=== PATIENT | female | born 1945 | race Caucasian/White ===

== ENCOUNTER → 2017-02-15 08:17 | Day surgery (SDC) | payer MEDICARE, BC ==
--- NOTE | 2017-02-14 01:19 | HP ---
ADMITTING HISTORY AND PHYSICAL: DATE OF ADMISSION: 02/15/17 ADMITTING DIAGNOSES: 1. Bilateral hydronephrosis (left greater than right). 2. Renal insufficiency. 3. Metastatic gallbladder carcinoma. PLANNED PROCEDURE: Cystoscopy, left retrograde, left stent insertion, possible left ureteroscopy, and possible right stent insertion. SURGEON: Dr. Henderson. HISTORY OF PRESENT ILLNESS: Amrita Parker is a 71-year-old lady with metastatic gallbladder carcinoma diagnosed in 2015, who has been getting chemotherapy. She had a CAT scan done on January 16, which had revealed new onset of left hydronephrosis. This has persisted and there is also mild right hydronephrosis. Her creatinine has been progressively deteriorating, went from 1.7 to 1.9 to 2.1. She denies any flank pain, dysuria, or gross hematuria. There is no definite etiology for the hydronephrosis noted on the imaging studies and she is now being brought in for further evaluation and management. PAST MEDICAL HISTORY: Significant for: 1. Hypertension. 2. High cholesterol. 3. Remote history of kidney stones. PAST SURGICAL HISTORY: Significant for PowerPort placement; exploratory laparotomy in April 2016, resulting in diagnosis of advanced gallbladder carcinoma; right ureteroscopy; appendectomy. MEDICATIONS: On admission: 1. Vicodin 5/325 p.r.n. 2. Lisinopril/hydrochlorothiazide 10/12.5 one tablet daily. 3. Potassium chloride 20 mEq daily. 4. Atorvastatin 20 mg daily. 5. Lorazepam 0.5 mg p.r.n. ALLERGIES: CIPRO (hives). SOCIAL HISTORY: Smoking history: She is a nonsmoker. PHYSICAL EXAMINATION GENERAL: Reveals a pleasant elderly lady. VITAL SIGNS: Blood pressure is 136/74, pulse 66 per minute, oxygen saturation 99% on room air. CARDIOVASCULAR: Regular rate and rhythm. S1, S2. Lungs are clear bilaterally. ABDOMEN: Soft without flank tenderness. Left subclavian port is in place. IMPRESSION: I reviewed the imaging studies and had a detailed discussion with Ms. Parker regarding the left hydronephrosis and the mild right hydronephrosis. PLAN: For cystoscopy, left retrograde, and stent insertion, and possible left ureteroscopy and possible right stent insertion depending on intraoperative findings. CC: Dr. Chavarria; Sandrita Bermudez NP; Dr. Henderson * [id number]/[facility] #: [id number] MAR[place]
[~2017-02-15 08:17] MED LIST: Buffered Lidocaine 1% SYRIN* 3 ML/SYR SYRINGE INTRADERM ONE; CMCS Solifenacin(NF) 5 MG TAB PO ONE; DiMENhydriNATE IV* 50 MG/ML VIAL IV PUSH PRN; DiMENhydriNATE IV* 50 MG/ML VIAL ONE; Furosemide IV* 10 MG/ML 2 ML VIAL (20 MG) ONE; Iohexol 180 (CONTRAST) 10 ML SDV IV ONE; Midazolam* 1 MG/ML 2 ML VIAL (2 MG) ONE; Ondansetron INJ* 2 MG/ML VIAL ONE; Scopolamine 1.5 mg* PATCH ONE; Scopolamine 1.5 mg* PATCH TRANSDERM ONE; cefTRIAXone(*) 2 GM ADDV.VIAL IVPB ONE; fentaNYL* 50 MCG/ML 2 ML VIAL (100 MCG VIAL) IV PRN; fentaNYL* 50 MCG/ML 2 ML VIAL (100 MCG VIAL) ONE
--- NOTE | 2017-02-15 11:56 | RAD ---
INDICATION: Bilateral stent placement COMPARISONS: CT dated January 16, 2017 TECHNIQUE: Fluoroscopy was provided for a retrograde pyelogram and stent placement. Total fluoroscopy time is: 27 seconds FINDINGS: Spot images after contrast within the renal collecting systems bilaterally, which are dilated. Bilateral ureteral stents are noted. IMPRESSION: FLUOROSCOPY WAS PROVIDED FOR A RETROGRADE PYELOGRAM AND STENT PLACEMENT CPT II Codes: 6045F
[2017-02-15 16:13] VITALS: BP 127/59
--- NOTE | 2017-02-27 01:44 | OP ---
DATE OF OPERATION: 02/15/17 - SDS DATE OF : [birth year] - AGE: 71 years, female. SURGEON: Clark Henderson MD ANESTHESIOLOGIST: Dr. Elias. ANESTHESIA: Spinal. PRE-OP DIAGNOSES: 1. Moderate to severe left hydronephrosis. 2. Mild right hydronephrosis. POST-OP DIAGNOSES: 1. Moderate to severe left hydronephrosis. 2. Mild right hydronephrosis. OPERATIVE PROCEDURE: 1. Cystoscopy, left retrograde pyelogram, left urethral dilatation, left ureteroscopy and left stent insertion. 2. Right retrograde and right stent insertion. COMPLICATIONS: None. STENTS USED: 7-Montenegr[place] 28 cm silicone stent, left ureter and 8.5 Mont[place] 28 cm silicone stent to the right ureter. OPERATIVE FINDINGS: Severe bilateral hydronephrosis with obstruction at the level of the distal left ureter with no definite etiology noted (possible fibrosis, possible extrinsic compression), mild right hydronephrosis. INDICATION: Amrita Parker is a 71-year-old lady with metastatic gallbladder carcinoma, who was noted to have severe left hydronephrosis and worsening renal function. In addition, she has mild right hydronephrosis. DESCRIPTION OF PROCEDURE: After induction of spinal anesthesia, the patient was placed in dorsal lithotomy position. Sequential compression devices were in place and functioning. Initial cystoscopy revealed no evidence of any mucosal lesions noted in the bladder. The left orifice was identified and cannulated and open- ended catheter was advanced over the guidewire and the entire 3 to 4 cm of the distal ureter were fairly narrow making even insertion of the open-ended catheter difficult. This was carefully dilated to 8-Montenegrin and semi-rigid ureteroscope was introduced. The lumen of the ureter appeared compressed as if by fibrosis or external pressure, but I could not visualize it very well and I did not see any lesions within the lumen. Nonetheless, the ureteroscopy was not completely able to rule out a lesion involving the mucosa anywhere more proximally, and she will require repeat ureteroscopy once the ureter has been allowed to dilate. On retrograde pyelogram, the proximal ureter was quite tortuous and there was a fair amount of extravasation of contrast noted. A 7-Montenegrin stent was introduced and advanced under fluoroscopic monitoring with good proximal and distal positioning obtained. Again, because of the significant narrowing of the distal ureter, even advancing a 7-Montenegrin stent was somewhat technically difficult, but at the end, it looked like it was in appropriate position. Next, attention was direct to the right side. Right retrograde revealed mild hydronephrosis and 8.5 [place] 28 cm silicone stent was placed successfully on the right side under fluoroscopic monitoring. My plan is to bring her back in 4 to 6 weeks to further assess the left ureter and to further dilate it and to be able to place an 8.5 Montenegrin stent on the left side also to try and keep it open for a more sustained duration. CC: Michelet Chavarria MD; Sandrita Bermudez NP; Dr. Henderson * [id number]/[facility] #: [id number] [facility]
== END | disposition home or self-care (01) ==
LOC: OR 08:17
PROVIDERS: ATTEND Urology
DX: N13.1 Hydronephrosis with ureteral stricture, not elsewhere classified (principal); C23 Malignant neoplasm of gallbladder; I10 Essential (primary) hypertension; N28.9 Disorder of kidney and ureter, unspecified
CPT/HCPCS: 74420; A9270-GY; C1876; J0696; J1240; J1642; J1940; J2250; J2405; J3010

== ENCOUNTER 2017-05-25 16:57 | Inpatient (IN) | payer MEDICARE, BC ==
[2017-05-25] MEDS ORDERED: Acetaminophen SUPP* 650 MG SUPP PR ONE (17:38)
--- NOTE | 2017-05-25 17:57 | RAD ---
HISTORY: Fever, pneumonia COMPARISONS: March 06, 2017 VIEWS:1: Single frontal portable view of the chest at left-sided chest port is noted from a subclavian approach with the tip overlying the cavoatrial junction. FINDINGS: LINES AND TUBES: None. CARDIOMEDIASTINAL SILHOUETTE: The cardiomediastinal silhouette is normal for portable technique. PLEURA: The costophrenic angles are sharp. No pleural abnormalities are noted. LUNG PARENCHYMA: The lung volumes are low. The lungs are clear accounting for the phase of respiration. ABDOMEN: The upper abdomen is clear. There is no subphrenic gas. BONES AND SOFT TISSUES: No bone or soft tissue abnormalities are noted. IMPRESSION: LINES AND TUBES ABOVE. LOW LUNG VOLUMES. NO ACTIVE CARDIOPULMONARY DISEASE.
[2017-05-25 18:02] LABS: Hematocrit 25 % (35-47); Hemoglobin 7.9 g/dl (12.0-16.0); Mean Corpuscular HGB Conc 32 g/dl (31-36); Mean Corpuscular Hemoglobin 30 pg (27-31); Mean Corpuscular Volume 92 fL (80-97); Mean Platelet Volume 9 um3 (7.4-10.4); Red Blood Count 2.67 10^6/ul (4.0-5.4); Red Cell Distribution Width 18 % (10.5-15); White Blood Count 7.5 10^3/ul (3.5-10.8)
[2017-05-25 18:09] LABS: Comments Flag Yes
[2017-05-25 18:10] LABS: Add Diff/Slide Review? Slide Review Added
[2017-05-25 18:18] LABS: Albumin 2.3 g/dL (3.2-5.2); BUN/Creatinine Ratio 15.4 (8-20); C Reactive Protein 221.93 mg/L (< 5.00); Calcium 8.7 mg/dL (8.6-10.3); EGFR African American 13.2 (>60); EGFR Non-African American 10.2 (>60); Globulin 3.3 g/dL (2-4); Potassium 4.6 mmol/L (3.5-5.0); Total Bilirubin 0.9 mg/dL (0.2-1.0); Total Protein 5.6 g/dL (6.4-8.9)
[2017-05-25] MEDS: NS 0.9% 1000 ML* 2,000 ML IV ONE ×2 (18:21→21:15)
[2017-05-25 18:22] LABS: Troponin I 0.07 ng/mL (<0.04)
[2017-05-25 19:05] LABS: Budding Yeast Present (Absent); Urine Bacteria 3+ (Absent); Urine Bilirubin Negative (Negative); Urine Glucose Negative (Negative); Urine Nitrite Negative (Negative)
[2017-05-25] MEDS ORDERED: NS 0.9% 1000 ML* 2,000 ML IV ONE (19:13)
[2017-05-25] MEDS ORDERED: NS 0.9% 1000 ML* 1,000 ML IV SCH (19:15)
--- NOTE | 2017-05-25 19:15 | ED ---
Ronel Young Salem, scribed for Johnathon العراقي MD on 05/25/17 at 1720 . Altered Mental Status - HPI Summary HPI Summary: Patient is a 71 y/o F who presents to the ED with AMS since 1500 this afternoon. Per , pt was diagnosed with gallbladder CA approximately one year ago. She was hospitalized in February and March 2017, and her last round of chemotherapy was in January 2017 (denies receiving radiation). states that pt had a BM 5 days ago and then did not have another one until last night that was watery (since she has had approximately 3-4). and daughter deny blood in stool, vomiting since 4 days ago, incontinence, cough, or any rashes, but report fever and weakness. She denies any pain. She was started on milk of magnesium pills 2 days ago. reports speaking to Dr. Arnold WEI. Pts oncologist is Dr. Chavarria. Pt had SBO in February 2017. They deny any recent abx use. - History Of Current Complaint Chief Complaint: EDAltMentalStatus Stated Complaint: UNRESPONSIVE Time Seen by Provider: 05/25/17 17:10 Hx Obtained From: Patient Timing: Constant Severity Initially: Moderate Severity Currently: Moderate Character: Confusion Aggravating Factor(s): Nothing Alleviating Factor(s): Nothing Associated Signs And Symptoms: Positive: Negative Related History: Other: - CA. - Allergies/Home Medications Allergies/Adverse Reactions: Allergies Allergy/AdvReac Type Severity Reaction Status Date / Time Ciprofloxacin [From Cipro] Allergy Intermediate Hives Verified 03/22/17 06:33 PMH/Surg Hx/FS Hx/Imm Hx Endocrine/Hematology History: Reports: Hx Anemia - DURING , resolved Denies: Hx Diabetes, Hx Systemic Lupus Erythematosus Cardiovascular History: Reports: Hx Hypercholesterolemia, Hx Hypertension - controlled with medication Denies: Hx Congestive Heart Failure History: Reports: Hx Kidney Stones - 10yrs ago stent placed, Hx Renal Disease - BILATERAL RENAL STENTS, Other Problems/Disorders - difficulty voiding Denies: Hx Dialysis Musculoskeletal History: Reports: Hx Gout - Hx of not currently taking anything Denies: Hx Rheumatoid Arthritis Sensory History: Reports: Hx Contacts or Glasses Denies: Hx Hearing Aid Opthamlomology History: Reports: Hx Contacts or Glasses Neurological History: Reports: Other Neuro Impairments/Disorders - shingles 2009 ? - Cancer History Cancer Type, Location and Year: GALL BLADDER Hx Chemotherapy: Yes - Gall Bladder, currently undergoing chemo Hx Radiation Therapy: No - Surgical History Surgery Procedure, Year, and Place: biopsy 04/24. carpal tunnel, appendectomy, cyste from ovary removed. Hx Anesthesia Reactions: No Infectious Disease History: Denies: History Other Infectious Disease - Family History Known Family History: Positive: Other - No fhx of SBO. - Social History Alcohol Use: None Hx Substance Use: No Substance Use Type: Reports: None Hx Tobacco Use: No Smoking Status (MU): Never Smoked Tobacco Review of Systems Positive: Fever, Other - No pain. Negative: Cough Positive: Diarrhea. Negative: Vomiting Genitourinary: Other - No blood in stool. Negative: incontinence Positive: Other - Blisters on lip. . Negative: Rash Positive: Weakness All Other Systems Reviewed And Are Negative: Yes Physical Exam - Summary Physical Exam Summary: The patient is well-nourished in no acute distress and in no acute pain. The skin is pale and diaphoretic. HEENT: The head is normocephalic and atraumatic. The pupils are equal and reactive. The conjunctivae are clear and without drainage. Nares are patent and without drainage. Mouth reveals extremely dry mucous membranes, but the throat is without erythema and exudate. The external ears are intact. The ear canals are patent and without drainage. The tympanic membranes are intact. Neck is supple with full range of motion and non-tender. Respiratory: Chest is non-tender. Lungs are clear to auscultation and breath sounds are symmetrical and equal. Cardiovascular: Heart is tachycardic. There is no murmur or rub auscultated. There is no peripheral edema and pulses are symmetrical and equal. Abdomen: The abdomen is soft and non-tender, but distended. There are normal bowel sounds heard in all four quadrants. Musculoskeletal: There is no back pain noted. Extremities are non-tender with full range of motion. Capillary refill in 3-4 seconds. There is no peripheral edema or calf tenderness elicited. Neurological: Patient is alert and oriented to person, place and time. The patient has symmetrical motor strength in all four extremities. Generalized weakness. Unable to do neurological exam. Pt is non-verbal - hx obtained through family. Psychiatric: The patient has an appropriate affect and does not exhibit any anxiety or depression. Triage Information Reviewed: Yes Vital Signs On Initial Exam: Last Vital Signs 05/25/17 17:17 Temperature 102.7 F Pulse Rate 140 Respiratory 30 Rate Blood Pressure 120/61 (mmHg) O2 Sat by Pulse 96 Oximetry Vital Signs Reviewed: Yes Diagnostics - Vital Signs Vital Signs Temp Pulse Resp BP Pulse Ox 05/25/17 17:17 102.7 F 140 30 120/61 96 - Laboratory Lab Results: Lab Results 05/25/17 05/25/17 05/25/17 Range/Units 17:55 17:55 17:55 WBC 7.5 (3.5-10.8) 10^3/ul RBC 2.67 L (4.0-5.4) 10^6/ul Hgb 7.9 L (12.0-16.0) g/dl Hct 25 L (35-47) % MCV 92 (80-97) fL MCH 30 (27-31) pg MCHC 32 (31-36) g/dl RDW 18 H (10.5-15) % Plt Count 105 L (150-450) 10^3/ul MPV 9 (7.4-10.4) um3 Neut % (Auto) 97.2 H (38-83) % Lymph % (Auto) 1.8 L (25-47) % [place] % (Auto) 0.8 L (1-9) % Eos % (Auto) 0 (0-6) % Baso % (Auto) 0.2 (0-2) % Absolute Neuts (auto) 7.3 (1.5-7.7) 10^3/ul Absolute Lymphs (auto) 0.1 L (1.0-4.8) 10^3/ul Absolute Monos (auto) 0.1 (0-0.8) 10^3/ul Absolute Eos (auto) 0 (0-0.6) 10^3/ul Absolute Basos (auto) 0 (0-0.2) 10^3/ul Absolute Nucleated RBC 0.01 10^3/ul Nucleated RBC % 0.1 Sodium 129 L (133-145) mmol/L Potassium 4.6 (3.5-5.0) mmol/L Chloride 97 L (101-111) mmol/L Carbon Dioxide 22 (22-32) mmol/L Anion Gap 10 (2-11) mmol/L BUN 66 H (6-24) mg/dL Creatinine 4.28 H (0.51-0.95) mg/dL Est GFR ( Amer) 13.2 (>60) Est GFR (Non-Af Amer) 10.2 (>60) BUN/Creatinine Ratio 15.4 (8-20) Glucose 81 (70-100) mg/dL Lactic Acid 1.6 (0.5-2.0) mmol/L Calcium 8.7 (8.6-10.3) mg/dL Total Bilirubin 0.90 (0.2-1.0) mg/dL AST 40 H (13-39) U/L ALT 14 (7-52) U/L Alkaline Phosphatase 548 H (34-104) U/L Troponin I 0.07 H* (<0.04) ng/mL C-Reactive Protein 221.93 H (< 5.00) mg/L Total Protein 5.6 L (6.4-8.9) g/dL Albumin 2.3 L (3.2-5.2) g/dL Globulin 3.3 (2-4) g/dL Albumin/Globulin Ratio 0.7 L (1-3) Urine Color Urine Appearance Urine pH (5-9) Ur Specific [place] (1.010-1.030) Urine Protein (Negative) Urine Ketones (Negative) Urine Blood (Negative) Urine Nitrate (Negative) Urine Bilirubin (Negative) Urine Urobilinogen (Negative) Ur Leukocyte Esterase (Negative) Urine WBC (Auto) (Absent) Urine RBC (Auto) (Absent) Ur Squamous Epith Cells (Absent) Urine Bacteria (Absent) Urine Yeast (Absent) Urine Glucose (Negative) 05/25/17 Range/Units 18:34 WBC (3.5-10.8) 10^3/ul RBC (4.0-5.4) 10^6/ul Hgb (12.0-16.0) g/dl Hct (35-47) % MCV (80-97) fL MCH (27-31) pg MCHC (31-36) g/dl RDW (10.5-15) % Plt Count (150-450) 10^3/ul MPV (7.4-10.4) um3 Neut % (Auto) (38-83) % Lymph % (Auto) (25-47) % [place] % (Auto) (1-9) % Eos % (Auto) (0-6) % Baso % (Auto) (0-2) % Absolute Neuts (auto) (1.5-7.7) 10^3/ul Absolute Lymphs (auto) (1.0-4.8) 10^3/ul Absolute Monos (auto) (0-0.8) 10^3/ul Absolute Eos (auto) (0-0.6) 10^3/ul Absolute Basos (auto) (0-0.2) 10^3/ul Absolute Nucleated RBC 10^3/ul Nucleated RBC % Sodium (133-145) mmol/L Potassium (3.5-5.0) mmol/L Chloride (101-111) mmol/L Carbon Dioxide (22-32) mmol/L Anion Gap (2-11) mmol/L BUN (6-24) mg/dL Creatinine (0.51-0.95) mg/dL Est GFR ( Amer) (>60) Est GFR (Non-Af Amer) (>60) BUN/Creatinine Ratio (8-20) Glucose (70-100) mg/dL Lactic Acid (0.5-2.0) mmol/L Calcium (8.6-10.3) mg/dL Total Bilirubin (0.2-1.0) mg/dL AST (13-39) U/L ALT (7-52) U/L Alkaline Phosphatase (34-104) U/L Troponin I (<0.04) ng/mL C-Reactive Protein (< 5.00) mg/L Total Protein (6.4-8.9) g/dL Albumin (3.2-5.2) g/dL Globulin (2-4) g/dL Albumin/Globulin Ratio (1-3) Urine Color Yellow Urine Appearance Cloudy Urine pH 5.0 (5-9) Ur Specific [place] 1.012 (1.010-1.030) Urine Protein 2+(100 mg/dl) H (Negative) Urine Ketones Negative (Negative) Urine Blood 3+ H (Negative) Urine Nitrate Negative (Negative) Urine Bilirubin Negative (Negative) Urine Urobilinogen Negative (Negative) Ur Leukocyte Esterase 2+ H (Negative) Urine WBC (Auto) 2+(11-20/hpf) H (Absent) Urine RBC (Auto) 3+(>10/hpf) H (Absent) Ur Squamous Epith Cells Present H (Absent) Urine Bacteria 3+ H (Absent) Urine Yeast Present H (Absent) Urine Glucose Negative (Negative) Result Diagrams: 05/25/17 17:55 05/25/17 17:55 Diagnostic Studies Comment: Trop: 0.07 Lab Statement: Any lab studies that have been ordered have been reviewed, and results considered in the medical decision making process. - Radiology CXR Radiology Interpretation Completed By: Radiologist - IMPRESSION: LINES AND TUBES ABOVE. LOW LUNG VOLUMES. NO ACTIVE CARDIOPULMONARY DISEASE. - EKG 1756 EKG Interpretation: Sinus tachycardia @ 124 bpm. PRWP. Old anterior wall PA. Altered Mental Statu Course/Dx - Course Course Of Treatment: 71 y/o F presents to the ED with AMS since 1500 this afternoon. and daughter deny blood in stool, vomiting since 4 days ago, incontinence, cough, or any rashes, but report fever, weakness, and changes in BM. She denies any pain. Pt is a CA pt. Pt received Tylenol, Zosyn, and fluids in ED course. CXR shows, per radiology, IMPRESSION: LINES AND TUBES ABOVE. LOW LUNG VOLUMES. NO ACTIVE CARDIOPULMONARY DISEASE. EKS shows Sinus tachycardia @ 124 bpm. PRWP. Old anterior wall PA. Pt will be admitted. - Diagnoses Differential Diagnosis/HQI/PQRI: Sepsis, Other - uti, urosepsis, renal failure Discharge Diagnoses: Sepsis, UTI (urinary tract infection), bacterial, Acute renal failure - Provider Notifications Discussed Care Of Patient With: Feliberto Guardado Time Discussed With Above Provider: 18:41 Instructed by Provider To: Admit As Inpatient Admit/Transition Orders Completed By ED Provider: Yes - Critical Care Time Critical Care Time: 30-74 min - 30 min Discharge - Discharge Plan Condition: Stable Disposition: ADMITTED TO [facility] Referrals: Sandrita Bermudez, [employer] [Primary Care Provider] - The documentation as recorded by the Ronel gomez Salem accurately reflects the service I personally performed and the decisions made by me, Johnathon العراقي MD.
[2017-05-25] MEDS: Ondansetron INJ* 2 MG/ML VIAL IV PRN ×2 (19:56→23:18)
[2017-05-25] MEDS ORDERED: Pantoprazole IV* 40 MG IV SCH (20:00)
[2017-05-25] MEDS ORDERED: metroNIDAZOLE IV 500 MG/100ML* 500 MG/100 ML BAG IVPB SCH (20:00)
--- NOTE | 2017-05-25 20:55 | RAD ---
CLINICAL HISTORY: Abdominal pain and distention COMPARISON: April 25, 2017 TECHNIQUE: Multiple contiguous axial CT scans were obtained of the abdomen and pelvis, without intravenous contrast enhancement. Coronal and sagittal multiplanar reformations are submitted for review. Oral contrast was administered. FINDINGS: The study is limited by the lack of intravenous contrast. This limits evaluation of the solid organs and vasculature. LUNG BASES: The lung bases are clear. LIVER: There is hepatomegaly. Again noted is a low-attenuation lesion of the right lobe of liver. This is similar in size accounting for differences in technique. BILE DUCTS: There is no intrahepatic or extrahepatic biliary dilatation. GALLBLADDER: Gallstones are noted. PANCREAS: The pancreas is normal, without mass or ductal dilatation. SPLEEN: Normal in size and appearance. UPPER GI TRACT: Evaluation of the gastrointestinal tract is limited by incomplete gastric distention. The upper GI tract is unremarkable. SMALL BOWEL AND MESENTERY: The small bowel is normal in contour, course, and caliber. There is no obstruction or dilatation. COLON: The colon is normal in contour, course, caliber. There is no pericolonic inflammatory change. ADRENALS: Normal bilaterally. KIDNEYS: Bilateral ureteral stents are noted. There is left-sided hydronephrosis. BLADDER: The bladder is not well evaluated. PELVIC ORGANS: The pelvic organs are not well evaluated. AORTA: The aorta is normal. IVC: Unremarkable LYMPH NODES: There is no lymphadenopathy by size criteria. ABDOMINAL WALL: There is no evidence for abdominal wall hernia. BONES AND SOFT TISSUES: There are mild diffuse degenerative changes. OTHER: There is been interval development of a large amount of ascites. There is peritoneal nodularity with a persistent ill-defined soft tissue mass of the pelvis IMPRESSION: 1. AGAIN NOTED IS AN ILL-DEFINED SOFT TISSUE MASS OF THE PELVIS. 2. AGAIN NOTED ARE LOW-ATTENUATION HEPATIC PARENCHYMAL LESIONS CONSISTENT WITH METASTATIC DISEASE. 3. THERE ARE BILATERAL URETERAL STENTS. THERE IS LEFT-SIDED HYDRONEPHROSIS. 4. THERE HAS BEEN INTERVAL DEVELOPMENT OF A LARGE AMOUNT OF ASCITES. 5. CHOLELITHIASIS
[2017-05-25] MEDS ORDERED: Cefepime(*) 1 GM in NS 0.9% 50 ML* 50 ML IVPB SCH (21:00)
[2017-05-25] MEDS ORDERED: Norepinephrine 16MCG/ML IVPRE* 4,000 MCG/250 ML BAG IV ONE (21:58)
[2017-05-25] MEDS ORDERED: Norepinephrine 16MCG/ML IVPRE* 4,000 MCG/250 ML BAG IV SCH (22:00)
[2017-05-25] MEDS ORDERED: Heparin VIAL(*) 5000 UNITS/ML VIAL (FIVE THOUSAND) SUBCUT SCH (22:00)
[2017-05-25] MEDS ORDERED: Acetaminophen SUPP* 650 MG SUPP PR PRN (22:16)
[2017-05-26 02:58] VITALS: BP 97/63
--- NOTE | 2017-05-26 08:07 | HP ---
CC: Dr. Kolb; Dr. Jordan; Dr. Chavarria* HISTORY AND PHYSICAL: DATE OF ADMISSION: 05/25/17 PRIMARY CARE PROVIDER: Dr. Jordan. ATTENDING PHYSICIAN WHILE IN THE HISTORY: Joshua Clark MD* (report dictated by Feliberto Guardado NP). CHIEF COMPLAINT: 1. Altered mental status. 2. Not feeling well. 3. Abdominal distention. HISTORY OF PRESENT ILLNESS: Ms. Parker is a 71-year-old female patient, she has a history of metastatic gallbladder cancer in addition to this has a hyperlipidemia, hypertension, and prediabetes, and recent SBO requiring partial bowel resection and bypass. She comes into the ER today. The has noted that beginning of the week she was constipated. She had a bowel movement in the middle of the week and then today she has been having liquid stools. She had about four of them. She also has noted over the last three days she had had decreased appetite, not really eating and increasing weakness and they have noticed that her stomach has been more distended. The patient denies any abdominal pain. There was no reports of a fever, but they did state that she felt warm. There was a fever here in the hospital. There was no chest pain, no shortness of breath. There has been no cough. There has been no complaints of abdominal pain, but there certainly has been distention. The patient's family was concerned today because she really was not responding to them, was not talking. They called Dr. Barrett, who is on- call for oncology and she recommended that the patient come in to the hospital to be further evaluated given her complaints. PAST MEDICAL HISTORY: Significant for: 1. Gallbladder carcinoma with metastases. 2. Hyperlipidemia. 3. Hypertension. 4. Prediabetes. 5. SBO. PAST SURGICAL HISTORY: 1. The patient has had a D and C. 2. Carpal tunnel. 3. Appendectomy. 4. Bowel resection. 5. Bypass. HOME MEDICATIONS: 1. MiraLAX 17 g p.o. daily. 2. Famotidine 20 mg p.o. daily. 3. Tylenol 325 mg p.o. 4 hours as needed. 4. Melatonin 5 mg p.o. at bedtime. 5. Magnesium oxide 800 mg p.o. b.i.d. 6. Lisinopril 10 mg a day. 7. Ativan 1 tablet p.o. every 4 hours as needed. 8. Advil 2 tablets p.o. every 4 hours as needed. 9. Zofran 4 mg p.o. every 4 hours a needed. 10. Morphine 5 mg every 2 hours as needed. 11. Reglan 5 mg every 8 hours as needed. ALLERGIES TO MEDICATIONS: Include CIPRO. FAMILY HISTORY: Mother is still alive. Currently the father had a history of diabetes. SOCIAL HISTORY: She does not smoke. She does not drink. She lives with her family. Surrogate decision maker is her daughter and her father. REVIEW OF SYSTEMS: There is a documented fever here. There has been significant weight change. There has not been any double vision. There has been no ear discharge. There has been no rhinorrhea, no sore throat. There has been no thyroid enlargement. No chest pain. No orthopnea. No nocturnal dyspnea. There is abdominal pain and distention. There was no nausea or vomiting. No dysuria, no frequency, no seizures, no loss of conscious, no pruritus and no skin ulceration. Review of 14 systems completed, all others negative. PHYSICAL EXAMINATION GENERAL: At this time, Elena is a 71-year-old female patient. She is chronically ill appearing. She does not appear to be in any acute distress. Currently, she is awake and she is alert. She does appear to be drowsy, but she will awaken and she is appropriate when she does. VITAL SIGNS: Initially, blood pressure 120/61 with pulse of 140, respirations 30, O2 sat 96% and temperature 102.7. Her blood pressure now is 102/60. Her heart rate is in the one-teens. Respirations are around 24. Her O2 sat is 96% on 2 L. HEENT: Head is atraumatic and normocephalic. Eyes: EOMs are intact. Sclerae was anicteric, not pale. Throat: Oral mucosa appears to be dry. No oropharyngeal erythema. NECK: Supple. LUNGS: Clear to auscultation bilaterally. No wheezes, rales, or rhonchi. HEART: Sounds S1, S2. She is tachycardic. ABDOMEN: Distended, she was tender in the lower abdomen. She was tympanic on percussion. Bowel sounds were hypoactive. EXTREMITIES: Pulses were 2+ throughout. She is able to move all 4 extremities with 5/5 strength. NEUROLOGIC: Again, she is drowsy, but she does awaken and she is alert x3 when asked orientation questions. No gross focal deficits. SKIN: Grossly intact. DIAGNOSTIC STUDIES/LAB DATA: Labs today did reveal a WBC 7.5, RBC of 2.67, hemoglobin 7.9, hematocrit 25, and platelet count is pending. Sodium is 129, potassium 4.6, chloride of 97, bicarb 22, BUN 66, creatinine of 4.28, glucose of 81, lactate 1.6, calcium 8.7. Total bili 0.9, AST 40, ALT 14, alk phos 548. Troponin 0.01. CRP was 221 it is the highest it has ever been. Albumin was 2.3. Urine obtained showed 3+ blood, 2+ leuk esterase, 2+ rbc's, 3+ bacteria, present yeast. She did have a chest x-ray obtained today as well, which revealed findings _ as above, low lung volumes, no active cardiopulmonary disease. EKG obtained today shows sinus tachycardia, rate of 124. She had minimal elevation in V1, V2 at the ST segment. It does appear to be J point elevation; however, if reviewed with her previous this does appear to be a newer finding. Old medical records are reviewed. ASSESSMENT AND PLAN: Ms. Parker is a 71-year-old female patient coming in to the ER today with complaints of not feeling well, there has been noted abdominal distention, in addition to this, it has been noted increasing abdominal discomfort in addition this, altered mental status and evaluation. She was found to be septic. She will be admitted under inpatient status for: 1. Sepsis. I suspect her source is probably anterior abdominal. On exam, she is distended. She is tender in her lower abdomen, I am worried about perforation. My plan at this point is to go ahead and get a CT of the abdomen and pelvis. Certainly her source could be her urine, but again with abdominal distention and pain I think that is less likely to be the only source, but I will go ahead and treat this. I am going to put her on cefepime and Flagyl given her 3 L of fluid wide open. In addition to this we will go ahead and also get blood cultures and a urine culture. We will continue to follow. 2. Elevated troponin with EKG changes, it is probably a demand ischemia. She is not having any chest pain from the sepsis; again when she came in her heart rate was 140. 3. Acute renal failure, again it is probably prerenal and there may be some ATN. Her baseline creatinine appears to be right around 1.1. Her new baseline may be right around 1.6 or 1.7, but I will get a FENa. We will go get the CT of the abdomen and pelvis to see for any associated hydronephrosis, but she is not having any pain there that would lead me to believe for obstructive uropathy. I will go ahead and again send a FENa, hydrate her and will follow this closely and avoid nephrotoxic agents. 4. Hyperlipidemia, we will start her meds back when she is able to take p.o. 5. Hypertension, blood pressure is on the low-side, now hold her medications currently. 6. Prediabetes we will monitor. 7. She has small-bowel obstruction, again we are getting a CT to follow back up on this. 8. DVT prophylaxis. She is at high risk. She will be placed on heparin subcu. 9. Code status. She did fill out a do not resuscitate, do no intubate. 10. Fluids, electrolytes, and nutrition. She is n.p.o. She will have a normal saline going at 125 an hour. TIME SPENT: On the admission 60 minutes, greater than half the time spent face- to- face with the patient obtaining my history and physical; other half of the time was spent going over the plan of care with the patient and implementing the plan of care. I did discuss the plan of care with my attending, Dr. Clark , he is in agreement. FELIBERTO GUARDADO, SERGIO [id number]/[facility] #: [id number] MARIFER
--- NOTE | 2017-05-26 14:14 | DS ---
CC: Dr. Jordan; Dr. Chavarria DISCHARGE SUMMARY: DATE OF ADMISSION: 05/25/17 DATE OF TRANSFER: 05/25/17 PRIMARY CARE PROVIDER: Dr. Jordan PRIMARY ONCOLOGIST: Dr. Chavarria. ACCEPTING PHYSICIAN: ____\F\ QA MARKER: 21 \F\____ SELENE Awad. MY ATTENDING PHYSICIAN WHILE IN THE HOSPITAL: Dr. Means (report being dictated by Preston Wise) TRANSFER DIAGNOSIS: Include septic shock requiring IV pressors secondary to infecting the left uret eral stent with hydronephrosis. SECONDARY DIAGNOSES: Include: 1. Gallbladder carcinoma with wide spread metastases. 2. Hyperlipidemia. 3. Hypertension. 4. Diabetes. 5. History of bilateral hydronephrosis status post ureteral stent placement. 6. New left-sided hydronephrosis compared to CTA imaging on the new hydronephrosis noted today when compared to CT imaging from April 25 of this year. TRANSFER MEDICATIONS: Include: 1. Acetaminophen 650 mg p.o. every 4 hours. 2. Heparin 5000 units subcu q. 8 hours as needed. 3. Normal saline at 125 mL an hour. 4. Levophed 5 mcg per minute titrate to max of greater than 60, titrate max of 20 mcg a minute. 5. Cefepime 1 g every 24 hours. 6. Zofran 4 mg IV every 6 hours. 7. Protonix 40 mg IV q. 24 hours. 8. Flagyl 500 mg IV q. 8 hours. HOME MEDICATIONS: Include: 1. MiraLax 17 g p.o. daily. 2. ____\F\ QA MARKER: 162 \F\____ mg daily. 3. Tylenol 325 mg p.o. every 4 hours as needed. 4. Melatonin 5 mg p.o. daily. 5. Magnesium oxide 800 mg p.o. b.i.d. 6. Lisinopril 10 mg p.o. daily. 7. Ativan 1 tablet every 4 hours as needed. 8. Ibuprofen 2 tablets p.o. every 4 hours as needed. 9. Zofran 4 mg every 4 hours as needed. 10. Morphine oral concentrate 5 mg p.o. q. 2 hours p.r.n. 11. Reglan 5 mg every 8 hours as needed. HISTORY OF PRESENT ILLNESS: I will refer you to my H and P dictated earlier today. Amrita Vasquez is a 71-year-old female patient who ____\F\ QA MARKER: 191 \F\____ has extended past medical histo ry ____\F\ QA MARKER: 193 \F\____ for metastatic gallbladder cancer who came into the ER today with 3 days complaints of generalized fatigue, not feeling well. Today, it was noted that she was very lethargic, almost unresponsive per the family. They called the data conversion analyst oncologist and the patient was brought into the ER. Earlier this week, she was constipated and did have a bowel movement in e middle of week. She had about 4 episode of diarrhea yesterday and today. There was concern th gh because of the altered mental status in fact that she was acting herself when she came into the E R. She was evaluated and it was ultimately noted when she came in she had an elevated troponin of 0 .07. She did have a EKG, which showed sinus tachycardia with J-point elevation at V2 and V3 ____\F\ QA MARKER: 244 \F\____ 124. It is also noted when she came in that she was in acute renal failur e. We were asked to ____\F\ QA MARKER: 252 \F\____ appear to be consistent with UTI. Hospitalist Stevan karimi was asked to evaluate. She was noted to be afebrile, tachycardiac, slightly hypertensive. S he was septic. We were asked to evaluate for admission and I evaluated her exam and I noted that s he was tender in lower abdomen. In addition to this she did have abdominal distention. She appeare d to have some ascites as well. I was concerned and I did order further imaging of the abdomen whi the impression read again noted an ill defined soft tissue mass at the pelvis again noted at low attenuation at the hepatic parenchymal lesion consistent with metastatic disease, bilateral ureteral stent. There is left-sided hydronephrosis, which is moderate and is new compared with previous sca ns and admitted and development of large amount of size and cholelithiasis. I did touch base with the patient's urologist and it was felt that she will be benefited from a nephrostomy tube which cou ld not be done here unfortunately, it was felt that the stent had failed most likely because progres marcelina of her disease and if there was another stent placed if the stent would fail again she may end up with the ____\F\ QA MARKER: 312 \F\____ same prediction, so I felt that the patient will be best served by obtaining a nephrostomy tube unfortunately the service is not available at this hospital. I said at this point that the patient need to be transferred. She had been already admitted. She has been in ICU and we are starting Levophed because her blood pressure ____\F\ QA MARKER: 330 \F\__ __ drop down in the 80 systolic. She is making ____\F\ QA MARKER: 336 \F\____. She is mentating, al though she does appear to be drowsy. At this point, I did touch base with SELENE ochoa, Dr. Awad __ __\F\ QA MARKER: 0 \F\____ accepted the patient for further definitive care and I believe she needs source control. The patient is a DNR/DNI and she will be transferred to the care of ____\F\ QA MARKER: 355 \F\____Ritesh's service. PHYSICAL EXAMINATION ON TRANSFER: Vital Signs: Again last blood pressure that I have was 84/60 wit h a pulse of 99, respirations were 20, her O2 sat was 98% on 2 L. She did not appear to be tachypnei c and her temperature was 99. Generally, at this time, Ms. Vasquez is a 71-year-old female patien t. She is chronically ill- appearing. She is sitting in the ICU bed. She does not appear to be i n any acute distress. HEENT: Head: Atraumatic, normocephalic. Eyes: EOMs are intact. Sclerae anict justino and not pale. Throat: Oral mucosa appears to be dry. No oropharyngeal erythema. Neck: Suppl e. Lungs: Clear to auscultation bilaterally. No wheezes, rales, or rhonchi. Heart: Sounds S1, S 2. Regular rate and rhythm. No murmurs, rubs, or gallops. Abdomen: Distended. There was tenderne ss in the suprapubic area. There is no CVA tenderness. Extremities: She had 5/5 strength. Neurol ogically, she is ____\F\ QA MARKER: 415 \F\____ she is awake, alert, and oriented x3. No gross foca l deficits. Skin: Intact. LABORATORY DATA: Labs when transfer revealed a WBC of 7.5, RBC of 2.67, hemoglobin 7.9, hematocrit of 25, platelet count of 105. Sodium is 129, potassium 4.6, chloride 97, bicarb 22, BUN is 66, cr eatinine 4.28, glucose 81, lactic 1.6, calcium 8.7, total bili 0.9, AST 4, ALT 14, alk phos 48, trop onin 0.07. CRP 221. Urine showed 2+ protein, 2+ blood, 2+ leukocyte esterase, 2+ wbc, 2+ bacteria. She had abdominal and pelvis CT obtained today which impression read again noted an ill defined soft tissue mass of the pelvis again there are low attenuation hepatic parenchymal lesion consistent wi th metastatic disease. There are bilateral ureteral stents. There is left-sided hydronephrosis. T here is ____\F\ QA MARKER: 467 \F\____ large amount of ascites, cholelithiasis. Chest x-ray obtaine d today revealed ____\F\ QA MARKER: 475 \F\____ no acute cardiopulmonary process. So she had an EKG obtained today which did show a sinus tachycardia and she did have J-point elevation, but no ST el evations were noted and I reviewed her previous EKG from February of this year the J-point elevation do es appear to be new. DISPOSITION: Transfer to [facility] ____\F\ QA MARKER: 500 \F\____ nurse and paramedics. TIME SPENT: Time spent on the transfer was 60 minutes; greater than half the time spent going over the transfer plan with the patient and other half time spent implementing plan of care. I did disc uss the plan of care with my attending, Dr. Means, he is in agreement. CONSUELO LARKIN, BLISTER RUST ERADICATOR [id number]/[facility] #: [id number]
--- NOTE | 2017-05-27 15:46 | TRS ---
CC: Dr. Jordan; Dr. Chavarria* TRANSFER SUMMARY: DATE OF ADMISSION: 05/25/17 DATE OF TRANSFER: 05/26/17 PRIMARY CARE PROVIDER: Dr. Jordan PRIMARY ONCOLOGIST: Dr. Chavarria ACCEPTING PHYSICIAN: Dr. Hernandez [facility]. MY ATTENDING PHYSICIAN WHILE IN THE HOSPITAL: Dr. Means *(report being dictated by Consuelo Guardado NP) TRANSFER DIAGNOSIS: Septic shock requiring IV pressors secondary to infected left ureteral stent with hydronephrosis. SECONDARY DIAGNOSES: Include: 1. Gallbladder carcinoma with wide spread metastases. 2. Hyperlipidemia. 3. Hypertension. 4. Prediabetes. 5. History of bilateral hydronephrosis status post ureteral stent placement. 6. New left-sided hydronephrosis compared to CTA imaging on the new hydronephrosis noted today when compared to CT imaging from 04/25/17. TRANSFER MEDICATIONS: Include: 1. Acetaminophen 650 mg p.o. every 4 hours. 2. Heparin 5000 units subcu every 8 hours as needed. 3. Normal saline at 125 mL an hour. 4. Levophed 5 micrograms per minute titrate to MAP of greater than 60, titrate to MAP of 20 micrograms a minute. 5. Cefepime 1 g every 24 hours. 6. Zofran 4 mg IV every 6 hours. 7. Protonix 40 mg IV every 24 hours. 8. Flagyl 500 mg IV every 8 hours. HOME MEDICATIONS: Include: 1. MiraLAX 17 g p.o. daily. 2. Famotidine 20 mg daily. 3. Tylenol 325 mg p.o. every 4 hours as needed. 4. Melatonin 5 mg p.o. daily. 5. Magnesium oxide 800 mg p.o. b.i.d. 6. Lisinopril 10 mg p.o. daily. 7. Ativan 1 tablet every 4 hours as needed. 8. Ibuprofen 2 tablets p.o. every 4 hours as needed. 9. Zofran 4 mg every 4 hours as needed. 10. Morphine oral concentrate 5 mg p.o. every 2 hours p.r.n. 11. Reglan 5 mg ever 8 hours as needed. HISTORY OF PRESENT ILLNESS: I will refer you to my H and P dictated earlier today. In short, Ms. Vasquez is a 71-year-old female patient who has an extensive past medical history particularly for metastatic gallbladder cancer, who came into the ER today with 3 days complaints of generalized fatigue and not feeling well. Today, it was noted that she was very lethargic, almost unresponsive per the family. They called the on-call oncologist and the patient was brought into the ER. Earlier in the week, she was constipated and did have a bowel movement in the middle of week. She had about 4 episode of diarrhea yesterday and today. There was concern though because of the altered mental status and the fact that she was not acting herself, so she came into the ER. She was evaluated and it was ultimately noted when she came in that she had an elevated troponin of 0.07. She did have an EKG, which showed sinus tachycardia with J-point elevation at V2 and V3, rate of 124. It was also noted when she came in that she was in acute renal failure. She was also noted to have a urine that appeared to be consistent with UTI and Hospitalist Service was asked to evaluate. She was noted to be febrile, tachycardiac, slightly hypotensive. She was septic. We were asked to evaluate for admission. When I evaluated her, on exam I noted that she was tender in lower abdomen. In addition to this she did have abdominal distention. She appeared to have some ascites as well. I was concerned and I did order further imaging of the abdomen, which the impression read again noted an ill defined soft tissue mass in the pelvis, again noted there were low attenuation hepatic parenchymal lesions consistent with metastatic disease. Bilateral ureteral stents. There is left-sided hydronephrosis, which is moderate and is new compared with previous scans and had been an interim development of large amount of ascites and cholelithiasis. I did touch base with the patient's urologist and it was felt that she would benefit from a nephrostomy tube which could not be done here unfortunately. It was felt that the stent had failed most likely because progression of her disease and if there was another stent placed, the stent would fail again and she may end up in the same predicament, so it was felt that the patient will be best served by obtaining a nephrostomy tube; unfortunately this service is not available at this hospital. So at this point it was deemed that the patient needed to be transferred. She had been already admitted. She has been in our ICU and we were starting Levophed because her blood pressures when she got up here had dropped down in the 80 systolic. She is making urine. She is mentating, although she does appear to be drowsy. At this point, I did touch base with [facility], Dr. Hernandez graciously accepted the patient for further definitive care and I believe she needs source control. The patient is a DNR/DNI. She will be transferred to the care of Dr. Hernandez's service. PHYSICAL EXAMINATION ON TRANSFER: Again the last blood pressure that I have was 84/60, with a pulse of 99, respirations were 20, her O2 sat was 98% on 2 L. She did not appear to be tachypneic and her temperature was 99. General Status: Ms. Vasquez is a 71-year-old female patient. She is chronically ill appearing. She is sitting in the ICU bed. She does not appear to be in any acute distress. HEENT: Head: Atraumatic, normocephalic. Eyes: EOMs are intact. Sclerae anicteric and not pale. Throat: Oral mucosa appears to be dry. No oropharyngeal erythema. Neck: Supple. Lungs: Clear to auscultation bilaterally. No wheezes, rales, or rhonchi. Heart: Sounds S1, S2. Regular rate and rhythm. No murmurs, rubs, or gallops. Abdomen: Distended. There was tenderness in the suprapubic area. There is no CVA tenderness. Extremities: She had 5/5 strength. Neurologic: She is drowsy, but she is she is awake, alert, and oriented x3. No gross focal deficits. Skin: Intact. LABORATORY DATA: Labs on transfer reveal a WBC of 7.5, RBC of 2.67, hemoglobin 7.9, hematocrit of 25, platelet count of 105. Sodium is 129, potassium 4.6, chloride 97, bicarb 22, BUN is 66, creatinine 4.28, glucose 81, lactic 1.6, calcium 8.7, total bili 0.9, AST 4, ALT 14, alk phos 548, troponin 0.07. CRP 221. Urine showed 2+ protein, 2+ blood, 2+ leukocyte esterase, 2+ WBC, 2+ bacteria. She had abdominal and pelvis CT obtained today which impression read: Again noted an ill defined soft tissue mass of the pelvis, again there are low attenuation hepatic parenchymal lesions consistent with metastatic disease. There are bilateral ureteral stents. There is left-sided hydronephrosis. There is an interim development of large amount of ascites, cholelithiasis. Chest x-ray obtained today revealed as above, low lung volumes, no acute cardiopulmonary process evident. She had an EKG obtained today which did show a sinus tachycardia and she did have J-point elevation, but no ST elevations were noted; it was reviewed with her previous EKG from February of this year, the J-point elevation does appear to be new. DISPOSITION: Transfer to [facility] via [facility] with nurse and area secretary. TIME SPENT: Time spent on the transfer was 60 minutes; greater than half the time spent going over the transfer plan with the patient and other half time spent implementing plan of care. I did discuss the plan of care with my attending, Dr. Means, who is in agreement. CONSUELO GUARDADO NP [id number]/[facility] #: [id number] MARIFER
== END 2017-05-26 03:29 | disposition short-term general hospital (02) | DRG 698 ==
LOC: ED 16:57 → ICU 19:05
PROVIDERS: ADMIT Hospitalist; ATTEND Internal Medicine
DX: T83.593A Infection and inflammatory reaction due to other urinary stents, initial encounter (principal); A41.51 Sepsis due to Escherichia coli [E. coli]; R65.21 Severe sepsis with septic shock; N17.9 Acute kidney failure, unspecified; N13.6 Pyonephrosis; C79.9 Secondary malignant neoplasm of unspecified site; C23 Malignant neoplasm of gallbladder; R74.8 Abnormal levels of other serum enzymes; E78.5 Hyperlipidemia, unspecified; I10 Essential (primary) hypertension; R73.03 Prediabetes; Z79.1 Long term (current) use of non-steroidal anti-inflammatories (NSAID); Z79.899 Other long term (current) drug therapy; Z88.8 Allergy status to other drugs, medicaments and biological substances; Z83.3 Family history of diabetes mellitus
CPT/HCPCS: 36415; 71010; 74176; 80053; 81003; 81015; 82570; 83605; 84300; 84484; 85025; 86140; 87040; 87077; 87086; 87186; 87205; 87641; 93005; A9270-GY; J0692; J1644; J2405; J2543